=== PATIENT | female | born 1985 | race Caucasian/White ===

== ENCOUNTER 2016-12-28 10:04 | Inpatient (IN) | payer MEDICAID ==
[2016-12-24 11:09] VITALS: BMI 38.2
[2016-12-28] MEDS ORDERED: ceFAZolin 2 GM in SODIUM CHLORIDE 0.9% 100 ML IVPB ONE (10:06)
[2016-12-28] MEDS ORDERED: CITRIC ACID-SODIUM CITRATE 15 ML CUP PO ONE (10:06)
[2016-12-28] MEDS ORDERED: LACTATED RINGERS 1,000 ML IV ONE (10:06)
[2016-12-28 10:45] LABS: Basophils % (A) 0 %; CH 26.4; CHCM 33.3; Eosinophils # (A) 0.1 k/uL (0-0.7); Eosinophils % (A) 1 %; HDW 3.39; HGB 11.4 gm/dL (11.4-16.0); Luc # (Auto) 0.34; Luc % (Auto) 4; Lymphocytes # (A) 1.7 k/uL (1.0-4.8); Lymphocytes % (A) 19 %; MCH 26.7 pg (25.0-35.0); MCHC 33.6 g/dL (31.0-37.0); MCV 79.4 fL (80.0-100.0); Mean Platelet Volume 8.6; Monocytes # (A) 0.5 k/uL (0-1.0); Monocytes % (A) 5 %; Neutrophils # (A) 6.1 k/uL (1.3-7.7); Neutrophils % (A) 71 %; RBC 4.28 m/uL (3.80-5.40); RDW 14.2 % (11.5-15.5); WBC 8.7 k/uL (3.8-10.6); WBC (Perox) 8.59
[2016-12-28] MEDS: LACTATED RINGERS 1,000 ML IV SCH ×3 (11:49→20:23)
[2016-12-28] MEDS ORDERED: PROPOFOL 10 MG/ML 20 ML VIAL IV ONE (12:20)
[2016-12-28] MEDS ORDERED: ONDANSETRON 4 MG/2 ML VIAL ONE (12:20)
[2016-12-28] MEDS ORDERED: HYDROmorphone (PF) 1 MG/ML ONE (12:20)
[2016-12-28] MEDS ORDERED: OXYTOCIN 10 UNIT/ML 1 ML VIAL ONE (12:20)
[2016-12-28] MEDS ORDERED: KETOROLAC 30 MG/ML 1 ML VIAL ONE (12:20)
[2016-12-28] MEDS ORDERED: NALBUPHINE 10 MG/ML AMPUL ONE (12:20)
[2016-12-28] MEDS ORDERED: diphenhydrAMINE 50 MG/ML 1 ML VIAL IVP PRN ×3 (12:59→13:25)
[2016-12-28] MEDS ORDERED: ONDANSETRON 4 MG/2 ML VIAL IVP PRN ×2 (12:59→13:25)
[2016-12-28] MEDS ORDERED: MORPHINE SULFATE 4 MG/ML SYRINGE IVP PRN (12:59)
[2016-12-28] MEDS ORDERED: NALOXONE 0.4 MG/ML 1 ML VIAL IV PRN ×2 (12:59→13:25)
[2016-12-28] MEDS ORDERED: ACETAMINOPHEN TAB 325 MG TAB PO PRN (13:25)
[2016-12-28] MEDS ORDERED: SIMETHICONE 80 MG CHEWABLE PO PRN (13:25)
[2016-12-28] MEDS ORDERED: METOCLOPRAMIDE 5 MG/ML 2 ML VIAL IVP PRN (13:25)
[2016-12-28] MEDS ORDERED: diphenhydrAMINE 25 MG CAP PO PRN (13:25)
[2016-12-28] MEDS ORDERED: diphenhydrAMINE 50 MG CAP PO PRN (13:25)
[2016-12-28] MEDS ORDERED: LANOLIN CREAM 5 GM TUBE TOPICAL PRN (13:25)
[2016-12-28] MEDS ORDERED: ZOLPIDEM 5 MG TAB PO PRN (13:25)
[2016-12-28] MEDS ORDERED: Acetaminophen-Codeine 300-30mg TAB PO PRN (13:25)
[2016-12-28] MEDS ORDERED: OXYTOCIN 20 UNITS/1000 ML NS 1,000 ML IV SCH (13:30)
--- NOTE | 2016-12-28 13:32 | P.HPOB ---
History of Present Illness H&P Date: 12/28/16 Chief Complaint: 39+ weeks, previous section, declining vaginal trial of labor The patient is a 31-year-old 2 para 1001 admitted at 39-5/7 weeks as established by last menstrual period and confirmed by 19 week ultrasound. She is admitted for repeat low transverse section having undergone a previous section for breech presentation. Her has been uncomplicated though she was diagnosed with gestational diabetes which was well controlled with diet alone. She carried a history of induced hypertension but suffered no such concerns during this . Group B strep status is positive Obstetrical history: 2 para 1001 with 1 term delivery for breech presentation. Current statistics are listed in history of present illness. EDC of 12/30/2016 was established by last menstrual period and confirmed by 19 week ultrasound. Laboratory workup demonstrates a blood type of O+ with a negative antibody screen. Rubella status is nonimmune. Remainder of her laboratory workup was within normal limits early Glucola was elevated and followed by an abnormal three-hour glucose tolerance test. Group B strep status is positive. Gynecologic history: Unremarkable with no history of any infections to include STDs. Review of Systems Review of systems is confined to history of present illness. Past Medical History Past Medical History: GERD/Reflux Additional Past Medical History / Comment(s): Gestational Diabetes Onset 2015 History of Any Multi-Drug Resistant Organisms: None Reported Past Surgical History: Section Additional Past Surgical History / Comment(s): wisdom teeth Past Anesthesia/Blood Transfusion Reactions: Postoperative Nausea & Vomiting ( PONV) Past Psychological History: Anxiety Additional Psychological History / Comment(s): in the past Smoking Status: Former smoker Past Alcohol Use History: None Reported Additional Past Alcohol Use History / Comment(s): smoked [id number] <1/2ppd Past Drug Use History: None Reported - Past Family History Mother Additional Family Medical History / Comment(s): Gestational Diabetes Medications and Allergies Home Medications Medication Instructions Recorded Confirmed Type Dlq-Jzyx-Olcyv Acid 1 each PO DAILY 07/31/14 12/24/16 History [-U Capsule] Ranitidine HCl [Zantac] 150 mg PO BID 07/31/14 12/24/16 History Calcium Carbonate [Tums] 500 mg PO DAILY PRN 12/24/16 12/24/16 History Allergies Allergy/AdvReac Type Severity Reaction Status Date / Time adhesive Allergy Rash/Hives Verified 12/24/16 10:56 Exam - Vital Signs Vital signs: Vital Signs Temp Pulse Resp BP Pulse Ox 12/28/16 10:36 98.2 F 82 16 133/78 99 Intake and Output 12/27/16 12/28/16 12/28/16 22:59 06:59 14:59 Other: Weight 104.326 kg Patient Weight 12/29/16 06:59 Weight 104.326 kg In general, this is a well-developed, well-nourished white female in no acute distress. Her heart has a regular rhythm and rate without murmur. Her lungs are clear to auscultation bilaterally in all fermin. Her abdomen is gravid, nondistended, has normal active bowel sounds, is soft, nontender, and without any palpable masses aside from uterine fundus. Her extremities are without any cyanosis, clubbing, or edema and are nontender to palpation bilaterally. Cervical examination is deferred. Results Result Diagrams: 12/28/16 10:20 Abnormal Lab Results - Last 24 Hours (Table) 12/28/16 Range/Units 10:20 MCV 79.4 L (80.0-100.0) fL Assessment and Plan (1) Previous section Status: Acute (2) Term Status: Acute Plan: The patient is admitted for repeat low transverse section. The risks and, occasions of the procedure been thoroughly discussed and she has understood and agreed to proceed.
--- NOTE | 2016-12-28 13:38 | P.OP ---
Date of Procedure: 12/28/16 Preoperative Diagnosis: #1. 39-5/7 weeks, previous section #2. Gestational diabetes Postoperative Diagnosis: Same Procedure(s) Performed: #1. Repeat low transverse section Anesthesia: spinal Surgeon: Garrett Contreras Leadership Program Intern #1: Abbi Osuna Estimated Blood Loss (ml): 500 IV fluids (ml): 1,000 Urine output (ml): 300 Pathology: other (Placenta) Condition: stable Disposition: floor Operative Findings: Intraoperatively, the patient was noted to have a fairly significant and dense degree of scar tissue in the midline between the rectus muscles and below the fascia. The uterus itself had fairly minimal scarring. She was delivered of a viable 7 lbs. 12 oz. baby girl with Apgars of 9 at 1 minute and 9 at 5 minutes. There was a loose nuchal cord reduced following delivery of the head. The placenta was delivered manually, intact, and grossly normal with a grossly normal three-vessel cord. The uterus, tubes, and ovaries were normal to inspection as well. Description of Procedure: The patient was prepped and draped in usual fashion after spinal anesthesia was administered by the anesthesiologist. A Pfannenstiel incision was made through pre-existing scar and extended to the fascia without difficulty. The fascia was divided transversely and noted to be densely adherent to the underlying muscles. This was dissected sharply after which time the abdomen was entered very superiorly as was dense midline scarring. Once entered the scarring in the midline was taken down layer by layer towards the pubic symphysis. The bladder remained well out of the way. A bladder blade was placed in the bladder was noted to be reflected distally from the intended site of incision. As result, a 2 cm incision was made in the transverse plane of the lower uterine segment to enter the uterus at which time clear fluid was noted. The incision was extended in both directions using the bandage scissors. The head was floating and not engaged in the pelvis. It was, however, delivered up and through the incision with fundal pressure. A nuchal cord was noted and was reduced. The nose and mouth were thoroughly suctioned. The remainder of the was delivered onto the field where the cord was doubly clamped, cut, and the passed for resuscitative measures with weight and Apgars noted above. A segment of cord was doubly clamped, cut, and set aside should cord gases become necessary. The placenta was delivered manually and intact as noted above. The uterus was exteriorized and the interior cavity of the uterus swept of any remaining placental or membranous fragments. The margins of the incision were grasped with Myers clamps and the incision closed in 2 layers. The first layer was a running locking stitch of 0 chromic catgut from margin to margin followed by a running imbricating layer of 0 chromic catgut from margin to margin. The posterior cul-de-sac was suctioned using a guard and the uterine and ovarian findings were normal as noted above. The uterus was replaced within the abdominal cavity and the gutters swept of any remaining blood, fluid, or clot. Any small points of bleeding along the incision were made hemostatic with the Bovie. Once hemostasis was confirmed, the parietal peritoneum was loosely reapproximated and layer of muscles examined and found to be hemostatic. The fascia was closed with 2 running stitches of 0 Vicryl proceeding from the lateral margins to the midpoint. The subcutaneous tissues were irrigated, made hemostatic with the Bovie, and reapproximated with running stitch of 30 plain catgut. The skin was reapproximated with a running subcuticular stitch of 4-0 Vicryl from margin to margin followed by half-inch Steri-Strips placed with Mastisol. Estimated blood loss for the case was approximate 500 mL. There were no complications. All sponge, instrument, and needle counts were correct. The patient tolerated the procedure well and proceeded to the recovery room in stable condition. Both mother and are resting comfortably in recovery.
[2016-12-28] MEDS ORDERED: MEASLES-MUMPS-RUBELLA VACC/PF 12,500 UNIT/0.5 ML VIAL SQ ONE (13:39)
[2016-12-28] MEDS: KETOROLAC 30 MG/ML 1 ML VIAL IVP PRN (19:08)
[2016-12-28] MEDS: SENNOSIDES-DOCUSATE SODIUM 1 EACH TAB PO SCH (20:23)
[2016-12-29] MEDS: LACTATED RINGERS 1,000 ML IV SCH ×7 (01:06→23:14)
[2016-12-29] MEDS: KETOROLAC 30 MG/ML 1 ML VIAL IVP PRN (01:28)
[2016-12-29] MEDS: Acetaminophen-Codeine 300-30mg TAB PO PRN ×2 (08:03→17:52)
[2016-12-29] MEDS: SENNOSIDES-DOCUSATE SODIUM 1 EACH TAB PO SCH ×2 (08:03→20:04)
--- NOTE | 2016-12-29 08:25 | P.PNOBGPC ---
Subjective - Subjective Patient reports: Reports appetite normal, Reports voiding normally, Reports pain well controlled, Reports ambulating normally : doing well Objective - Vital Signs Latest vital signs: Vital Signs Temp Pulse Resp BP Pulse Ox 12/29/16 04:00 98.1 F 67 18 124/56 12/29/16 00:00 98.1 F 70 16 126/72 12/28/16 20:00 98.1 F 65 16 125/74 12/28/16 17:59 98 12/28/16 15:59 98.5 F 86 16 104/72 97 12/28/16 15:15 78 16 121/56 98 12/28/16 14:59 81 16 135/63 98 12/28/16 14:29 83 16 129/64 97 12/28/16 13:59 74 16 143/81 98 12/28/16 13:44 76 16 114/76 98 12/28/16 13:29 97.6 F 81 16 120/61 98 12/28/16 12:59 81 16 120/61 98 12/28/16 10:36 98.2 F 82 16 133/78 99 Intake and Output 12/28/16 12/29/16 12/29/16 22:59 06:59 14:59 Intake Total 300 Output Total 450 850 Balance -150 -850 Intake: IV 300 Oxytocin 20 Units/1000 ml 300 Ns 1,000 ml @ Per Protocol IV .Q0M [facility] Rx#: [id number] Output: Urine 450 850 - Exam Lungs: bilateral: normal Chest: Normal S1, Normal S2 Extremities: Present: normal Abdomen: Present: normal appearance, soft. Absent: distention, tenderness Incision: Present: normal, dry, intact Uterus: Present: normal, firm (And fundus as tonic and nontender just below the umbilicus.) - Labs Labs: Abnormal Lab Results - Last 24 Hours (Table) 12/28/16 Range/Units 10:20 MCV 79.4 L (80.0-100.0) fL Assessment and Plan (1) Previous section Current Visit: Yes Status: Acute Code(s): Z98.891 - HISTORY OF UTERINE SCAR FROM PREVIOUS SURGERY SNOMED Code(s): 156166860 (2) Term Current Visit: Yes Status: Acute Code(s): Z34.80 - ENCOUNTER FOR SUPRVSN OF NORMAL , UNSP TRIMESTER SNOMED Code(s): 09386002 (3) S/P section Narrative/Plan: Continue routine postoperative care. Have encouraged her to ambulate in the hallways at least 4 times daily. Anticipate possible discharge home tomorrow. Current Visit: Yes Status: Acute Code(s): Z98.89 - OTHER SPECIFIED POSTPROCEDURAL STATES * DO NOT USE * SNOMED Code(s): 151917793
[2016-12-29 08:55] LABS: Basophils % (A) 0 %; CH 26.4; CHCM 32.7; Eosinophils # (A) 0.1 k/uL (0-0.7); Eosinophils % (A) 1 %; HCT 30.3 % (34.0-46.0); HDW 3.21; Hypochromasia Slight; Luc # (Auto) 0.28; Luc % (Auto) 4; Lymphocytes # (A) 1.2 k/uL (1.0-4.8); Lymphocytes % (A) 15 %; MCH 26.5 pg (25.0-35.0); MCHC 32.6 g/dL (31.0-37.0); MCV 81.1 fL (80.0-100.0); Mean Platelet Volume 8.2; Monocytes # (A) 0.5 k/uL (0-1.0); Monocytes % (A) 6 %; Neutrophils # (A) 5.8 k/uL (1.3-7.7); Neutrophils % (A) 74 %; RBC 3.73 m/uL (3.80-5.40); RDW 14.5 % (11.5-15.5); WBC 7.8 k/uL (3.8-10.6); WBC (Perox) 8.41
[2016-12-29 09:06] LABS: HGB 9.9 gm/dL (11.4-16.0)
--- NOTE | 2016-12-29 12:09 | P.PN ---
Progress Note - Text 0734 Anesthesia POD 1. Patient is status post section under spinal anesthesia with intra-thecal preservative free morphine 300 g. Mild pruritus, good post-op analgesia, and no headache or other complication.
[2016-12-29] MEDS: IBUPROFEN 600 MG TAB PO PRN ×2 (16:00→22:31)
[2016-12-30] MEDS: Acetaminophen-Codeine 300-30mg TAB PO PRN ×2 (05:24→10:21)
[2016-12-30] MEDS: LACTATED RINGERS 1,000 ML IV SCH (07:02)
[2016-12-30] MEDS: IBUPROFEN 600 MG TAB PO PRN (08:32)
[2016-12-30] MEDS: SENNOSIDES-DOCUSATE SODIUM 1 EACH TAB PO SCH (08:32)
--- NOTE | 2016-12-30 08:57 | P.DS ---
Providers Date of admission: 12/28/16 10:04 Expected date of discharge: 12/30/16 Attending physician: Garrett Contreras Primary care physician: Stated None - Discharge Diagnosis(es) (1) Previous section Current Visit: Yes Status: Acute (2) Term Current Visit: Yes Status: Acute (3) S/P section Current Visit: Yes Status: Acute Hospital Course: Patient is a 31-year-old 2 para 1001 admitted at 39-5/7 weeks by good dating parameters admitted for repeat low transverse section with an uncomplicated though she does carry the diagnosis of gestational diabetes which was well controlled with diet. She was taken to the operating room where she was delivered of a viable 7 lbs. 12 oz. baby girl with Apgars of 9 at 1 minute and 9 at 5 minutes. Her postoperative course was unremarkable with vital signs remaining stable and her temperature was afebrile throughout. She was deemed stable for discharge by post operative day #2 and was discharged home to follow-up in the office in 2 weeks for an incision check and 6 weeks routinely. Discharge instructions included calling for any significantly increased bleeding or foul-smelling lochia, significantly increased fever or abdominal pain, perineal complaints, breast complaints, incisional complaints, or anything else that concerned her. She was additionally instructed to have nothing in the vagina for at least 6 weeks time to include intercourse and to abstain from any heavy lifting over the same period of time. She was last instructed to do no driving until off of all pain medications or 2 weeks' time, whichever came first. She was provided with a prescription for Tylenol No. 3, 1 -2 by mouth every 6 hours when necessary pain, #30 dispensed with no refills. She was otherwise to use tajn-jhw-xnijpsx analgesic pain medications as needed and was requested to continue a vitamin daily as she has opted to breast-feed. Maternal blood type is O+ and rubella status is nonimmune. She therefore was to receive MMR prior to discharge. Discharge hemoglobin and hematocrit were 9.9 and 30.3 respectively. As result, she was to take iron sulfate daily for roughly 1 month. Procedures: 1. Repeat low transverse section Patient Condition at Discharge: Good Plan - Discharge Summary New Discharge Prescriptions: Acetaminophen-Codeine 300-30mg [Tylenol #3] 2 tab PO Q6H PRN #30 tablet PRN Reason: Pain Discharge Medication List Bdv-Xcsr-Majyt Acid [-U Capsule] 1 each PO DAILY 07/31/14 [ History] Ranitidine HCl [Zantac] 150 mg PO BID 07/31/14 [History] Calcium Carbonate [Tums] 500 mg PO DAILY PRN 12/24/16 [History] Acetaminophen-Codeine 300-30mg [Tylenol #3] 2 tab PO Q6H PRN #30 tablet [Rx] Follow up Appointment(s)/Referral(s): Garrett Contreras MD [STAFF PHYSICIAN] - 2 Weeks Discharge Disposition: HOME SELF-CARE
[2016-12-30 10:31] VITALS: BP 121/78; PULSE 84; RESP 18; TEMP 98.4
== END 2016-12-30 11:11 | disposition home or self-care (01) | DRG 766 ==
LOC: 4FBP 10:04
PROVIDERS: ADMIT Obstetrics & Gynecology; ATTEND Obstetrics & Gynecology
PROC: 10D00Z1 Extraction of Products of Conception, Low, Open Approach (ICD-10-PCS; principal; 2016-12-28 12:00)
DX: O34.211 Maternal care for low transverse scar from previous cesarean delivery (principal); O24.420 Gestational diabetes mellitus in childbirth, diet controlled; K21.9 Gastro-esophageal reflux disease without esophagitis; Z37.0 Single live birth; O99.824 Streptococcus B carrier state complicating childbirth; Z87.891 Personal history of nicotine dependence; O99.62 Diseases of the digestive system complicating childbirth; O69.81X0 Labor and delivery complicated by cord around neck, without compression, not applicable or unspecified; Z3A.39 39 weeks gestation of pregnancy
CPT/HCPCS: 85025; 86850; 86900; 86901; 88307; 90707

== ENCOUNTER 2019-02-05 13:37 | Day surgery (SDC) | payer MEDICAID ==
--- NOTE | 2019-02-04 13:24 | HP ---
HISTORY AND PHYSICAL REASON FOR ADMISSION: Surgery is scheduled for 02/05/2019. HISTORY OF PRESENT ILLNESS: Luanne Vu is a 33-year-old patient seen with a displaced left ankle lateral malleolar fracture. I recommended open reduction and internal fixation. I reviewed the risks, complications, and recovery. The patient was agreeable, consent was obtained. PAST MEDICAL HISTORY: Noncontributory. PAST SURGICAL HISTORY: section. MEDICATIONS: Zantac. ALLERGIES: None. SOCIAL HISTORY: She smokes half a pack cigarettes daily. PHYSICAL EXAMINATION: Physical evaluation of the left ankle reveals tenderness along the lateral malleolus with moderate swelling and mild ecchymosis. No open wounds. Limited range of motion. Ankle with some pain. Distal neurovascular exam intact. RADIOGRAPHS: Of the left ankle revealed a displaced lateral malleolar fracture. IMPRESSION: Left ankle lateral malleolar fracture. PLAN: Open reduction and internal fixation, left ankle lateral malleolus fracture. Surgery is 02/05/2019. MMODL / IJN: [id number] /
[~2019-02-05 13:37] MED LIST: DEXAMETHASONE SOD PHOSPHATE 10 MG/ML 1 ML VIAL IV ONE; HYDROmorphone 0.5 MG/0.5 ML SYRINGE IVP PRN; MIDAZOLAM 2 MG/2 ML VIAL IV PRN; SCOPOLAMINE 1.5MG/72HR PATCH TRANSDERM ONE; ceFAZolin IN SWFI 2 GM/20 ML SYRINGE IVP ONE
[2019-02-05] MEDS ORDERED: LIDOCAINE 1% 20 ML VIAL (10MG/ML) FOR IV START INTRADERMA ONE (14:09)
[2019-02-05] MEDS: LACTATED RINGERS 1,000 ML IV SCH (14:10)
[2019-02-05] MEDS: ONDANSETRON 4 MG/2 ML VIAL IVP ONE ×2 (14:13→17:36)
[2019-02-05] MEDS ORDERED: fentaNYL (PF) 50 MCG/ML 2 ML AMP IVP ONE (14:50)
--- NOTE | 2019-02-05 15:58 | P.ANPRN ---
Procedure Note - Anesthesia - Nerve Block Performed Left Popliteal Single Time Out Performed: Yes Date of Procedure: 02/05/19 Procedure Start Time: 14:43 Location of Patient Procedure: PreOp Indication: Acute Post-Operative Pain Specifically requested for management of pain by DrTamy: Matias Salgado Sedation Type: Sedate with meaningful contact maintained Preparation: Sterile Prep Position: Right Lateral Catheter: None Needle Types: Pajunk Needle Gauge: 21 (2") Technique: Ultrasound Injectate: Other (see comment) (ropivacaine 0.25%/lidocaine 0.5% 20 mL) Adjunct: Epinephrine (see comment for dilution ratio) (1:200,000) Blood Aspirated: No Pain Paresthesia on Injection Noted: No Resistance on Injection: Normal Events: Uneventful and Well Tolerated
--- NOTE | 2019-02-05 16:00 | P.ANPRN ---
Procedure Note - Anesthesia - Nerve Block Performed Left Saphenous/Obturator Single Time Out Performed: Yes Date of Procedure: 02/05/19 Procedure Start Time: 15:05 Location of Patient Procedure: PreOp Indication: Acute Post-Operative Pain Specifically requested for management of pain by DrTamy: Matias Salgado Sedation Type: Sedate with meaningful contact maintained Preparation: Sterile Prep Position: Supine Catheter: None Needle Types: Pajunk (4") Needle Gauge: 20 Technique: Ultrasound Injectate: Other (see comment) (Ropivacaine 0.25%/lidocaine 0.5% 20 mL) Adjunct: Epinephrine (see comment for dilution ratio) (1:200,000) Blood Aspirated: No Pain Paresthesia on Injection Noted: No Resistance on Injection: Normal Events: Uneventful and Well Tolerated
[2019-02-05] MEDS ORDERED: MIDAZOLAM 2 MG/2 ML VIAL ONE (16:08)
[2019-02-05] MEDS ORDERED: LIDOCAINE 2%-EPI 1:100,000 20 ML VIAL ONE (16:08)
[2019-02-05] MEDS ORDERED: fentaNYL (PF) 50 MCG/ML 2 ML AMP ONE (16:08)
[2019-02-05] MEDS ORDERED: PROPOFOL 10 MG/ML 20 ML VIAL IV ONE (16:08)
[2019-02-05] MEDS ORDERED: ROPIVACAINE 5 MG/ML 30 ML VIAL ONE (16:08)
[2019-02-05] MEDS ORDERED: ceFAZolin 1,000 MG in SODIUM CHLORIDE 0.9% 1,000 ML IRRIGATION ONE (16:36)
[2019-02-05] MEDS ORDERED: NALOXONE 0.4 MG/ML 1 ML VIAL IV PRN (17:16)
[2019-02-05] MEDS ORDERED: ACETAMINOPHEN TAB 325 MG TAB PO PRN (17:16)
[2019-02-05] MEDS ORDERED: HYDROmorphone 0.5 MG/0.5 ML SYRINGE IVP PRN (17:16)
[2019-02-05] MEDS ORDERED: HYDROcodone/APAP 7.5-325MG 1 EACH TAB PO PRN (17:16)
[2019-02-05] MEDS ORDERED: ONDANSETRON 4 MG/2 ML VIAL IVP PRN (17:16)
[2019-02-05] MEDS ORDERED: traMADol 50 MG TAB PO PRN (17:16)
--- NOTE | 2019-02-05 17:24 | P.OP ---
Date of Procedure: 02/05/19 Preoperative Diagnosis: Displaced left ankle lateral malleolus fracture Postoperative Diagnosis: Displaced left ankle lateral malleolus fracture Procedure(s) Performed: Open reduction and internal fixation left ankle lateral malleolus fracture Implants: Synthes one third semitubular 6-hole plate with appropriate length screws Anesthesia: regional (Popliteal block), spinal Surgeon: Matias Salgado Director Marketing Analytics #1: Mor Gipson Estimated Blood Loss (ml): 10 Pathology: none sent Condition: stable Disposition: PACU Indications for Procedure: 33-year-old patient seen with a displaced left ankle lateral malleolus fracture. After treatment options were discussed, she elected to proceed with recommended open reduction internal fixation. Operative Findings: see description of procedure Description of Procedure: The patient was taken to the operative suite. The patient received preoperative IV antibiotics. A well-padded tourniquet placed proximal left thigh. The left lower extremity was prepped and draped in the normal sterile orthopedic fashion. The extremity was elevated and tourniquet insufflated to 300. An incision was now made over the lateral meniscus sharply through skin. Dissection was taken down to the fracture site. Periosteal elevation was utilized to better define the fracture site. The fracture appeared displaced. The fracture was now red uced and held in position with a bone reduction clamp. I chose a one third semitubular 6-hole plate. I probed the contoured. It was secured to the bone. Appropriate drill holes were made appropriately screws were inserted noting good purchase of all 6 screws. The bone reduction clamp was removed. We had anatomic reduction of the fracture. C-arm was brought in confirming anatomic reduction of the fracture as well as adequate positioning of the internal fixation. Spot films were obtained intraoperatively to document this. The C- arm was pulled back. The wound was irrigated. The subcu soft tissues were approximated with 2-0 Vicryl. The skin was repaired with skin wil. Sterile dressings were applied. The tourniquet was released with immediate capillary refill the entire foot and toes noted. The patient is now placed into a modified bulky Murray both ankle in neutral position. The patient was now awakened transferred to a bed and recovery stable condition. Manuel CASILLAS assisted with the procedure.
[2019-02-05 19:14] VITALS: BMI 37.9
[2019-02-05] MEDS: ceFAZolin IN SWFI 2 GM/20 ML SYRINGE IVP SCH (23:25)
[2019-02-05] MEDS: HYDROcodone/APAP 7.5-325MG 1 EACH TAB PO PRN (23:36)
[2019-02-05 23:43] VITALS: TEMP 97.7
[2019-02-06] MEDS: HYDROcodone/APAP 7.5-325MG 1 EACH TAB PO PRN ×2 (05:36→11:17)
[2019-02-06] MEDS: LACTATED RINGERS 1,000 ML IV SCH (06:41)
[2019-02-06 07:26] VITALS: BP 122/86; PULSE 62; RESP 16
--- NOTE | 2019-02-06 08:44 | XR ---
EXAMINATION TYPE: XR ankle limited LT DATE OF EXAM: 02/05/2019 COMPARISON: NONE HISTORY: Postop TECHNIQUE: 2 views submitted FINDINGS: Postsurgical change in near anatomic alignment. IMPRESSION: Postop
[2019-02-06] MEDS: ceFAZolin IN SWFI 2 GM/20 ML SYRINGE IVP SCH (08:55)
--- NOTE | 2019-02-06 08:56 | FL ---
EXAMINATION TYPE: FL guidance operating room DATE OF EXAM: 02/05/2019 HISTORY: Flouroscopy time 9 seconds of fluoroscopy provided. IMPRESSION: 1. Fluoroscopy time.
[2019-02-06] MEDS ORDERED: ASPIRIN 325 MG TAB PO SCH (09:00)
--- NOTE | 2019-02-06 10:59 | P.PN ---
Subjective Progress Note Date: 02/06/19 Principal diagnosis: Status post ORIF left ankle lateral malleolus Patient evaluated at bedside today, she is resting comfortably. Her pain is well-controlled. She's been up with therapy, she's doing well. Denies any fevers or chills. Objective - Vital Signs Vital signs: Vital Signs Temp 97.7 F 02/06/19 07:00 Pulse 62 02/06/19 07:00 Resp 16 02/06/19 07:00 BP 122/86 02/06/19 07:00 Pulse Ox 97 02/06/19 07:00 Intake & Output 02/05/19 02/06/19 02/06/19 18:59 06:59 18:59 Intake Total 1201 500 Output Total 10 Balance 1191 500 Intake: IV 1201 Intake, IV Titration 500 Amount Lactated Ringers 1,000 ml 500 @ 40 mls/hr IV .Q24H [facility] Rx#:[id number] Output: Estimated Blood Loss 10 Other: Voiding Method Bedside Commode # Voids 3 - Exam Left lower extremity: Postop splint is in good position and condition, she is able to wiggle the toes, her sensory exam both proximal distal splitter intact. Skin is warm to touch. Assessment and Plan Plan: Assessment: Postoperative day 1 status post ORIF left ankle lateral malleolus fracture Plan: Pain control, we'll discharge home on oral medication GI and DVT prophylaxis, 81 mg aspirin twice a day Splint instructions were discussed Activity instructions discussed Patient will be discharged home today Time with Patient: Less than 30
--- NOTE | 2019-02-06 11:02 | P.DS ---
Providers Date of admission: 02/05/2019 Expected date of discharge: 02/06/19 Attending physician: Matias Salgado Primary care physician: Stated None Hospital Course: Date of admission: 02/05/2019 Date of discharge: 02/06/2019 Admission diagnosis: Status post ORIF left ankle lateral malleolus fracture Discharge diagnosis: Sustained Attending physician: Dr. Salgado Surgical procedures: ORIF left ankle lateral malleolus fracture Brief history: Patient is a 33-year-old female was evaluated in the outpatient setting for a left ankle injury. She determined she had a displaced left lateral malleolus fracture. She determined she would need surgical intervention, she was scheduled for surgery on 02/05/[address] Salgado [place] [facility] course: Details of patient's surgery can be found in operative report. Patient tolerated the procedure well and was subsequently transported to orthopedic floor. Patient's orthopeidc and medical care was provided daily. Patient had daily laboratory tests performed for evaluation of overall blood counts. Patient had daily physical therapy to include strengthening range of motion as well as education with walker ambulation. Patient was treated with aspirin for their postoperative DVT prophylaxis during their inpatient stay. Patient was noted to have a relatively uneventful postoperative course. Patient reported satisfactory pain control with oral pain medications by postoperative day 0. Patient showed satisfactory progress with physical therapy. Patient moved steadily through the program and had no difficulty meeting the goals by postoperative day 1. Given patient's otherwise satisfactory course and having met physical therapy goals, plan is to discharge patient home on postoperative day 1. Discharge condition/disposition: Patient will be discharged home in stable con dition. Discharge medications: Instructions are given on resumption of patient's normal daily medications per primary care recommendation, in addition patient will be prescribed [place] 10 mg/325 mg, tramadol 50 mg, aspirin 81 mg. Discharge instructions: 1. Nonweightbearing left lower extremity 2. Keep splint clean and dry, keep covered while showering 3. Ice and elevate the lower extremity options 4. Follow up in office at 2 weeks postop with Manuel Gipson PA-C 5. Follow up with your primary care doctor 7-10 days after discharge. 6. Contact [facility] with any questions, . Procedures: ORIF left ankle lateral malleolus fracture Patient Condition at Discharge: Good Plan - Discharge Summary Discharge Rx Participant: Yes New Discharge Prescriptions: New Aspirin [Adult Low Dose Aspirin EC] 81 mg PO BID #60 tablet. Hydrocodone/Acetaminophen [[place] 10-325] 1 - 2 each PO Q6H PRN #40 tab PRN Reason: Pain traMADol HCl [Ultram] 50 mg PO Q6H PRN #28 tab PRN Reason: Pain No Action Ranitidine HCl [Zantac] 150 mg PO BID PRN PRN Reason: Heartburn Hydrocodone/Acetaminophen [[place] 7.5-325] 1 tab PO Q6HR PRN PRN Reason: Pain Discharge Medication List Ranitidine HCl [Zantac] 150 mg PO BID PRN 07/31/14 [History] Hydrocodone/Acetaminophen [[place] 7.5-325] 1 tab PO Q6HR PRN 02/02/19 [History] Aspirin [Adult Low Dose Aspirin EC] 81 mg PO BID #60 tablet. 02/06/19 [Rx] Hydrocodone/Acetaminophen [[place] 10-325] 1 - 2 each PO Q6H PRN #40 tab 02/06/19 [Rx] traMADol HCl [Ultram] 50 mg PO Q6H PRN #28 tab 02/06/19 [Rx] Follow up Appointment(s)/Referral(s): Mor Gipson PAC [PHYSICIAN SPORTS MARKETER] - 02/21/19 10:20 am Patient Instructions/Handouts: ORIF of an Ankle Fracture (DC) Activity/Diet/Wound Care/Special Instructions: Orthopedic discharge instructions: 1. Nonweightbearing left lower extremity 2. Keep splint clean and dry, keep covered while showering 3. Ice and elevate often 4. Aspirin 325 mg daily for DVT prophylaxis 5. [facility]-up at [facility] in [facility] weeks, contact office with any questions Discharge Disposition: HOME SELF-CARE
== END 2019-02-06 12:21 | disposition home or self-care (01) ==
LOC: OR 13:37 → 4SSUR 18:11 → OR 02-06 12:21
PROVIDERS: ATTEND Orthopaedic Surgery
DX: S82.62XA Displaced fracture of lateral malleolus of left fibula, initial encounter for closed fracture (principal); X58.XXXA Exposure to other specified factors, initial encounter; Z87.891 Personal history of nicotine dependence; K21.9 Gastro-esophageal reflux disease without esophagitis; Z79.899 Other long term (current) drug therapy; Z91.09 Other allergy status, other than to drugs and biological substances
CPT/HCPCS: 64447; 81025; 64445; 73600; 27792; C1713; J2250; J1100; J2405; J0690 ×3; J3010; J2795; J2704

== ENCOUNTER → 2020-02-14 | Outpatient (CLI) | payer MEDICAID ==
[2020-02-14 10:15] LABS: Appearance,Urine Clear (Clear); Bilirubin,Urine Negative (Negative); Blood,Urine Negative (Negative); Color,Urine Yellow; Glucose,Urine (UA) Negative (Negative); Ketones,Urine Negative (Negative); Leukocyte Esterase,Urine Negative (Negative); Nitrite,Urine Negative (Negative); PH, Urine 6.5 (5.0-8.0); Protein,Urine Negative (Negative); Specific Gravity,Urine 1.018 (1.001-1.035); Urobilinogen,Urine <2.0 mg/dL (<2.0)
[2020-02-14 10:42] LABS: HCT 37.6 % (34.0-46.0); HGB 12.5 gm/dL (11.4-16.0); MCH 30.4 pg (25.0-35.0); MCHC 33.3 g/dL (31.0-37.0); MCV 91.2 fL (80.0-100.0); Mean Platelet Volume 7.4; Platelet Count 280 k/uL (150-450); RBC 4.12 m/uL (3.80-5.40); RDW 12.4 % (11.5-15.5); WBC 8.7 k/uL (3.8-10.6)
[2020-02-14 18:10] LABS: Hepatitis B Surface Antigen Non-Reactive (Non-Reactive)
[2020-02-14 18:31] LABS: HIV 2 AB Non-Reactive (Non-Reactive); HIV AB P24 Non-Reactive (Non-Reactive); HIV P24 AG Non-Reactive (Non-Reactive)
[2020-02-14 19:13] LABS: Hemoglobin A1C 5.4 % (4.0-6.0)
== END | disposition home or self-care (01) ==
LOC: LABWHC1 08:31
PROVIDERS: ATTEND Obstetrics & Gynecology
DX: Z34.81 Encounter for supervision of other normal pregnancy, first trimester (principal)
CPT/HCPCS: 36415; 81003; 82950; 83036; 85027; 86762; 86780; 86850; 86900; 86901; 87086; 87340; 87390

== ENCOUNTER → 2020-02-29 | Outpatient (CLI) | payer MEDICAID ==
[2020-02-29 12:36] LABS: Glucose 3 Hour, Gest 67 mg/dL
== END | disposition home or self-care (01) ==
LOC: LABWHC1 07:39
PROVIDERS: ATTEND Obstetrics & Gynecology
DX: O99.810 Abnormal glucose complicating pregnancy (principal)
CPT/HCPCS: 36415; 82951; 82952

== ENCOUNTER 2020-08-26 10:08 | Inpatient (IN) | payer MEDICAID ==
[2020-08-20 14:44] VITALS: BMI 39.9
[2020-08-26] MEDS ORDERED: CITRIC ACID-SODIUM CITRATE 15 ML CUP PO ONE ×2 (10:20→11:10)
[2020-08-26 10:53] LABS: Basophils % (A) 0 %; Eosinophils # (A) 0.1 k/uL (0-0.7); Eosinophils % (A) 2 %; HCT 31.6 % (34.0-46.0); HGB 10.8 gm/dL (11.4-16.0); Lymphocytes # (A) 1.4 k/uL (1.0-4.8); Lymphocytes % (A) 20 %; MCH 27.4 pg (25.0-35.0); MCHC 34.2 g/dL (31.0-37.0); MCV 80.2 fL (80.0-100.0); Mean Platelet Volume 8.1; Monocytes # (A) 0.3 k/uL (0-1.0); Monocytes % (A) 5 %; Neutrophils # (A) 4.7 k/uL (1.3-7.7); Neutrophils % (A) 70 %; Platelet Count 184 k/uL (150-450); RBC 3.94 m/uL (3.80-5.40); RDW 13.6 % (11.5-15.5); WBC 6.8 k/uL (3.8-10.6)
[2020-08-26] MEDS: LACTATED RINGERS 1,000 ML IV SCH ×2 (11:12→16:37)
[2020-08-26] MEDS ORDERED: WATER FOR INJECTION, STERILE 10 ML VIAL IV ONE (11:58)
[2020-08-26] MEDS ORDERED: OXYTOCIN 10 UNIT/ML 1 ML VIAL ONE (11:58)
[2020-08-26] MEDS ORDERED: ePHEDrine SULFATE/0.9% NACL/PF 50 MG/5 ML SYRINGE IV ONE (11:58)
[2020-08-26] MEDS ORDERED: fentaNYL (PF) 50 MCG/ML 2 ML AMP ONE (11:58)
[2020-08-26] MEDS ORDERED: KETOROLAC 15 MG/ML 1 ML VIAL ONE (11:58)
[2020-08-26] MEDS ORDERED: MORPHINE SULFATE (PF) 0.3 MG/0.3 ML SYR ONE (11:58)
[2020-08-26] MEDS ORDERED: CELLULOSE,OXIDIZED 1 EACH EACH MISCELLANE ONE (12:00)
[2020-08-26] MEDS ORDERED: NALOXONE 0.4 MG/ML 1 ML VIAL IV PRN (13:17)
[2020-08-26] MEDS ORDERED: diphenhydrAMINE 50 MG CAP PO PRN (13:17)
[2020-08-26] MEDS ORDERED: LANOLIN CREAM 5 GM TUBE TOPICAL PRN (13:17)
[2020-08-26] MEDS ORDERED: diphenhydrAMINE 50 MG/ML 1 ML VIAL IVP PRN (13:17)
[2020-08-26] MEDS ORDERED: ACETAMINOPHEN TAB 325 MG TAB PO PRN (13:17)
[2020-08-26] MEDS ORDERED: ZOLPIDEM 5 MG TAB PO PRN (13:17)
[2020-08-26] MEDS ORDERED: SIMETHICONE 80 MG CHEWABLE PO PRN (13:17)
[2020-08-26] MEDS ORDERED: diphenhydrAMINE 25 MG CAP PO PRN (13:17)
[2020-08-26] MEDS ORDERED: ONDANSETRON 4 MG/2 ML VIAL IVP PRN (13:17)
[2020-08-26] MEDS ORDERED: METOCLOPRAMIDE 5 MG/ML 2 ML VIAL IVP PRN (13:17)
--- NOTE | 2020-08-26 13:23 | P.HPOB ---
History of Present Illness H&P Date: 08/26/20 Chief Complaint: And one sevenths weeks, previous section, requesting repeat The patient is a 35-year-old 3 para 2 scissors or 2 admitted at 39 and one sevenths weeks as established by last menstrual period and confirmed by 20 week ultrasound. She is admitted for repeat low transverse section having previously undergone 2 sections and requesting repeat. Her has been complicated only by gestational diabetes which has been fol lowed with excellent blood sugar control using diet alone and reassuring routine testing starting from 32 weeks weekly basis. Group B strep status is negative. She is known to have a 2 cm renal cyst on the right side which was noted 35 weeks. Obstetrical history: 3 para 2 scissors or 2 with 2 term sections without complications. Current statistics are listed in history of present illness. EDC of 09/01/2020 was established by last menstrual period and confirmed by 20 week ultrasound. Laboratory workup demonstrates a blood type of O+ with a negative antibody screen. Rubella status is immune. Remainder of the laboratory workup was within normal limits. Early Glucola was elevated and followed by an abnormal three-hour glucose tolerance test. Group B strep status is negative. Senior Graphic Designer history: Unremarkable with no history of any infections to include STDs. Review of Systems Review of systems is confined to history of present illness. Past Medical History Past Medical History: GERD/Reflux Additional Past Medical History / Comment(s): fell last evening, fx. left ankle, currently in half cast/splint History of Any Multi-Drug Resistant Organisms: None Reported Past Surgical History: Section Additional Past Surgical History / Comment(s): wisdom teeth, C/S x2. ORIF LT ANKLE-01/2019 Past Anesthesia/Blood Transfusion Reactions: Postoperative Nausea & Vomiting (PONV) Past Psychological History: No Psychological Hx Reported Additional Psychological History / Comment(s): in the past Smoking Status: Former smoker Past Alcohol Use History: None Reported, Occasional Additional Past Alcohol Use History / Comment(s): smoked [id number] <1/2ppd, drinks 3-5 days per week Past Drug Use History: None Reported - Past Family History Mother Additional Family Medical History / Comment(s): Gestational Diabetes Medications and Allergies Home Medications Medication Instructions Recorded Confirmed Type Calcium Carbonate [Tums] 1,000 mg PO TID PRN 08/20/20 08/26/20 History Famotidine [Pepcid] 10 mg PO BID 08/20/20 08/26/20 History Ferrous Sulfate [Feosol] 325 mg PO BID 08/20/20 08/26/20 History Pnv No.95/Ferrous Fum/Folic AC 1 each PO DAILY 08/20/20 08/26/20 History [ Multivitamin Tablet] Allergies Allergy/AdvReac Type Severity Reaction Status Date / Time adhesive Allergy Rash/Hives Verified 08/20/20 14:40 Exam Vital Signs Temp Pulse Resp BP 08/26/20 10:37 96.9 F L 76 16 135/91 Intake and Output 08/25/20 08/26/20 08/26/20 22:59 06:59 14:59 Other: Weight 108.862 kg In general, this is a well-developed, well-nourished white female in no acute distress. Her heart has a regular rhythm and rate without murmur. Her lungs are clear to auscultation bilaterally in all fermin. Her abdomen is gravid, nondistended, has normal active bowel sounds, soft, nontender, and without any palpable masses aside from uterine fundus. Her extremities are without any cyanosis, clubbing, or edema and are nontender to palpation bilaterally. Digital cervical examination is deferred. Results Result Diagrams: 08/26/20 10:45 Abnormal Lab Results - Last 24 Hours (Table) 08/26/20 Range/Units 10:45 Hgb 10.8 L (11.4-16.0) gm/dL Hct 31.6 L (34.0-46.0) % Assessment and Plan (1) Gestational diabetes Current Visit: No Status: Acute Code(s): O24.419 - GESTATIONAL DIABETES MELLITUS IN , UNSP CONTROL SNOMED Code(s): 71289313 (2) Previous section Current Visit: No Status: Acute Code(s): Z98.891 - HISTORY OF UTERINE SCAR FROM PREVIOUS SURGERY SNOMED Code(s): 132812688 (3) Term Current Visit: No Status: Acute Code(s): Z34.80 - ENCOUNTER FOR SUPRVSN OF NORMAL , UNSP TRIMESTER SNOMED Code(s): 23379409 Plan: The patient is admitted for repeat low transverse section. The risks and complications the procedure been thoroughly discussed. She has understood and agreed to proceed.
[2020-08-26] MEDS ORDERED: LACTATED RINGERS 1,000 ML IV SCH (13:30)
[2020-08-26] MEDS ORDERED: OXYTOCIN 30 UNITS/500 ML NS 30 UNIT in SALINE 1 500ML.BAG IV SCH (13:30)
--- NOTE | 2020-08-26 13:30 | P.OP ---
Date of Procedure: 08/26/20 Preoperative Diagnosis: #1. 39 and one sevenths weeks, previous section 2, requesting repeat #2. Gestational diabetes Postoperative Diagnosis: Same Procedure(s) Performed: #1. Repeat low-transverse section Anesthesia: spinal Surgeon: Garrett Contreras Box Stamper #1: Abbi Osuna Estimated Blood Loss (ml): 800 IV fluids (ml): 1,500 Urine output (ml): 100 Pathology: none sent Condition: stable Disposition: PACU Operative Findings: The patient was taken the operating room where she was delivered of a viable 8 lbs. 1 oz. baby girl with Apgars of 9 at 1 minute and 9 at 5 minutes. There was a moderate to significant amount of scarring at the level of the fascia and rectus muscles as well as at the level of the bladder flap and peritoneum to the anterior abdominal wall. Following the procedure, layer of Interceed was placed across the entire area of previous scarring to attempt to decrease it in the future. Otherwise, uterus, tubes, and ovaries were entirely normal to inspe ction and palpation. Description of Procedure: Patient was prepped and draped in usual fashion after spinal anesthesia was administered by the anesthesiologist. A Pfannenstiel incision was made through pre-existing scar and extended into the abdominal cavity with some difficulty at the level of the fascia and muscles as they were significantly scarred. Once in the abdomen, the bladder peritoneum was noted to be scarred to the back of the rectus muscles and fairly high in the pelvis as a general rule. It was therefore elevated, incised, and reflected distally after taking down some of the adhesions which were making the procedure more difficult. A 2 cm incision was made in the transverse plane of the lower uterine segment to enter the uterus at which time clear fluid was noted. The incision was extended in both directions using the bandage scissors. The head was delivered up and through the incision where the nose and mouth were thoroughly suctioned. A loose nuchal cord was reduced and the remainder of the infant delivered onto the field without difficulty. The cord was doubly clamped, cut, and the infant passed for resuscitative measures with weight and Apgars as noted above. A segment of cord was then doubly clamped, cut, and set aside should cord gases become necessary. The placenta was delivered spontaneously, intact, and grossly normal with a grossly normal three-vessel cord. The uterus was exteriorized and the interior cavity of the uterus swept of any remaining placental or membranous fragments. The margins of the incision were grasped with Myers clamps and the incision closed in 2 layers. The first layer was a running locking stitch of 0 chromic catgut from margin to margin followed by a running imbricating stitch from margin to margin. Any small points of bleeding were made hemostatic with the Bovie. The posterior cul-de-sac was suctioned using a guard and attention returned to the uterine incision. Use was replaced within the abdominal cavity was noted to have some ongoing bleeding both at the right aspect and central aspects of the incision at which time they were made hemostatic with a [id number] stitch of 0 chromic catgut. Once hemostasis had been established, the parietal peritoneum was loosely reapproximated as best as possible in the layer of muscles examined and made hemostatic with the Bovie. The fascia was closed with a running stitch of 0 Vicryl lateral margins to the midpoint. The subcutaneous tissues were irrigated, made hemostatic with the Bovie, and reapproximated using a running stitch of 30 plain catgut from margin to margin. The skin was closed with a running subcuticular stitch of 4-0 Vicryl proceeding from margin to margin. Estimated blood loss for the case is approximately 800 mL. There were no complications. All sponge, instrument, needle counts were correct. The patient tolerated the procedure well and proceeded to the recovery room in stable condition. Both mother and infant are resting comfortably in recovery.
[2020-08-26] MEDS: diphenhydrAMINE 50 MG/ML 1 ML VIAL IVP PRN (16:41)
[2020-08-26] MEDS: KETOROLAC 15 MG/ML 1 ML VIAL IVP PRN (19:46)
[2020-08-26] MEDS: SENNOSIDES-DOCUSATE SODIUM 1 EACH TAB PO SCH (19:46)
[2020-08-27] MEDS: LACTATED RINGERS 1,000 ML IV SCH ×2 (01:20→08:08)
[2020-08-27] MEDS: KETOROLAC 15 MG/ML 1 ML VIAL IVP PRN (01:40)
[2020-08-27] MEDS: diphenhydrAMINE 50 MG/ML 1 ML VIAL IVP PRN (01:42)
[2020-08-27] MEDS: HYDROcodone/APAP 5-325MG 1 EACH TAB PO PRN ×2 (05:25→23:38)
[2020-08-27 06:33] LABS: Basophils % (A) 0 %; Eosinophils # (A) 0.1 k/uL (0-0.7); Eosinophils % (A) 1 %; HCT 27.4 % (34.0-46.0); HGB 9.4 gm/dL (11.4-16.0); Lymphocytes # (A) 0.8 k/uL (1.0-4.8); Lymphocytes % (A) 11 %; MCH 27.8 pg (25.0-35.0); MCHC 34.2 g/dL (31.0-37.0); MCV 81.5 fL (80.0-100.0); Mean Platelet Volume 9.7; Monocytes # (A) 0.4 k/uL (0-1.0); Monocytes % (A) 5 %; Neutrophils # (A) 6.3 k/uL (1.3-7.7); Neutrophils % (A) 81 %; Platelet Count 129 k/uL (150-450); RBC 3.36 m/uL (3.80-5.40); WBC 7.8 k/uL (3.8-10.6)
[2020-08-27] MEDS: SENNOSIDES-DOCUSATE SODIUM 1 EACH TAB PO SCH ×2 (08:07→20:31)
--- NOTE | 2020-08-27 08:26 | P.PN ---
Progress Note - Text Progress Note Date: 08/27/20 (962) Anesthesia Postop day 1 Subjective: Status Post section with Duramorph. Patient seen and examined. Doing well without current complaint. VAS 4 out of 10. Positive nausea, and vomiting 3 yesterday now resolved. Pruritus mildtolerable.. Afebrile. Gross lower extremity strength intact. Positive ambulation. Without apparent anesthetic complications. Objective: Vital signs reviewed Heart: Regular Rate Lungs: Good chest excursion Abdomen: Appears nondistended Assessment: Status post with Duramorph postop day 1 Plan: Continue current care with your medical management.
--- NOTE | 2020-08-27 08:36 | P.PNOBGPC ---
Subjective - Subjective Patient reports: Reports appetite normal, Reports voiding normally, Reports pain well controlled, Reports ambulating normally : doing well Objective - Vital Signs Latest vital signs: Vital Signs Temp Pulse Resp BP Pulse Ox 08/27/20 04:00 96.9 F L 88 16 115/67 08/27/20 00:00 98.0 F 80 16 124/76 08/26/20 20:00 98.1 F 86 16 123/74 08/26/20 15:15 75 16 132/79 98 08/26/20 14:45 78 16 108/58 99 08/26/20 14:15 91 16 117/75 99 08/26/20 14:00 78 16 135/75 97 08/26/20 13:45 86 16 133/70 98 08/26/20 13:30 87 16 127/86 99 08/26/20 13:15 97.2 F L 87 16 126/76 98 08/26/20 10:37 96.9 F L 76 16 135/91 Intake and Output 08/26/20 08/27/20 08/27/20 22:59 06:59 14:59 Output Total 1151 100 Balance -1151 -100 Output: Urine 1150 100 Uretheral (Goins) 400 Emesis 1 - Exam Extremities: Present: normal Abdomen: Present: normal appearance, soft. Absent: distention, tenderness Incision: Present: normal, dry, intact Uterus: Present: normal, firm (And fundus is tonic inappropriately tender just below the umbilicus.) - Labs Labs: Abnormal Lab Results - Last 24 Hours (Table) 08/26/20 08/27/20 Range/Units 10:45 06:22 RBC 3.36 L (3.80-5.40) m/uL Hgb 10.8 L 9.4 L (11.4-16.0) gm/dL Hct 31.6 L 27.4 L (34.0-46.0) % Plt Count 129 L (150-450) k/uL Lymphocytes # 0.8 L (1.0-4.8) k/uL Assessment and Plan (1) Gestational diabetes Current Visit: No Status: Acute Code(s): O24.419 - GESTATIONAL DIABETES MELLITUS IN , UNSP CONTROL SNOMED Code(s): 77279480 (2) Previous section Current Visit: No Status: Acute Code(s): Z98.891 - HISTORY OF UTERINE SCAR FROM PREVIOUS SURGERY SNOMED Code(s): 197582740 (3) Term Current Visit: No Status: Acute Code(s): Z34.80 - ENCOUNTER FOR SUPRVSN OF NORMAL , UNSP TRIMESTER SNOMED Code(s): 20331531 (4) S/P section Current Visit: No Status: Acute Code(s): Z98.89 - OTHER SPECIFIED POSTPROCEDURAL STATES * DO NOT USE * SNOMED Code(s): 848361321 Plan: Continue routine postoperative care. I would anticipate discharge home tomorrow pending no complications. I have strongly encouraged the patient and the halls routinely.
[2020-08-27] MEDS: HYDROcodone/APAP 7.5-325MG 1 EACH TAB PO PRN ×2 (11:07→18:18)
[2020-08-27] MEDS: IBUPROFEN 600 MG TAB PO PRN ×2 (13:57→20:31)
[2020-08-28] MEDS: HYDROcodone/APAP 5-325MG 1 EACH TAB PO PRN (04:41)
[2020-08-28] MEDS: SENNOSIDES-DOCUSATE SODIUM 1 EACH TAB PO SCH (08:14)
[2020-08-28] MEDS: HYDROcodone/APAP 7.5-325MG 1 EACH TAB PO PRN (08:14)
--- NOTE | 2020-08-28 08:38 | P.DS ---
Providers Date of admission: 08/26/20 10:08 Expected date of discharge: 08/28/20 Attending physician: Garrett Contreras Primary care physician: Stated None - Discharge Diagnosis(es) (1) Gestational diabetes Current Visit: No Status: Acute (2) Previous section Current Visit: No Status: Acute (3) Term Current Visit: No Status: Acute (4) S/P section Current Visit: No Status: Acute Hospital Course: The patient is a 35-year-old 3 para 2001 admitted at 39 and one sevenths weeks by good dating parameters. She is admitted for repeat low transverse section having had 2 previous sections and requesting repeat. Her is comfortable gestational diabetes with good blood sugar control initially with diet. Group B strep status is negative. On labor and delivery, she was taken the operating room where she was delivered of a viable 8 lbs. 1 oz. baby girl with Apgars of 9 at 1 minute and 9 at 5 minutes. Her postoperative course and course were unremarkable with vital signs remaining stable and her temperature was afebrile throughout. She was deemed stable for discharge on and postoperative day #2 was discharged home to follow-up in the office in 2 weeks for an incision check and 6 weeks routinely. Discharge instructions included calling for any significantly in creased bleeding or foul-smelling lochia, significantly increased fever or abdominal pain, perineal complaints, breast complaints, incisional complaints, or anything else that concerned her. She was additionally instructed to have nothing in the vagina for at least 6 weeks time to include intercourse and to abstain from any heavy lifting over the same period of time. She was last instructed to do no driving until off of all pain medications or 2 weeks' time, whichever came first. She understood her instructions and agrees to follow up as noted above. Discharge medications included [id number] analgesic pain medications as well as continued vitamins as she has opted to breast- feed. She additionally was provided with a prescription for [place] 5/325 mg, 1-2 by mouth every 6 hours when necessary pain, #20 dispensed with no refills. Maternal blood type is O+ and rubella status is immune. Discharge hemoglobin and hematocrit were 9.4 and 27.4 respectively. As result, she was asked to take iron sulfate of once daily for at least a month to rebuild her hemoglobin. Procedures: #1. Repeat low transverse section Patient Condition at Discharge: Stable Plan - Discharge Summary Discharge Rx Participant: Yes New Discharge Prescriptions: No Action Ferrous Sulfate [Feosol] 325 mg PO BID Calcium Carbonate [Tums] 1,000 mg PO TID PRN PRN Reason: REFLUX Pnv No.95/Ferrous Fum/Folic AC [ Multivitamin Tablet] 1 each PO DAILY Famotidine [Pepcid] 10 mg PO BID Discharge Medication List Calcium Carbonate [Tums] 1,000 mg PO TID PRN 08/20/20 [History] Famotidine [Pepcid] 10 mg PO BID 08/20/20 [History] Ferrous Sulfate [Feosol] 325 mg PO BID 08/20/20 [History] Pnv No.95/Ferrous Fum/Folic AC [ Multivitamin Tablet] 1 each PO DAILY 08/20/20 [History] Follow up Appointment(s)/Referral(s): Garrett Contreras MD [STAFF PHYSICIAN] - 2 Weeks Discharge Disposition: HOME SELF-CARE
[2020-08-28 08:39] VITALS: BP 118/77; PULSE 103; RESP 18; TEMP 98.4
== END 2020-08-28 12:00 | disposition home or self-care (01) | DRG 788 ==
LOC: 4FBP 10:08
PROVIDERS: ADMIT Obstetrics & Gynecology; ATTEND Obstetrics & Gynecology
PROC: 10D00Z1 Extraction of Products of Conception, Low, Open Approach (ICD-10-PCS; principal; 2020-08-26 12:00)
DX: O34.211 Maternal care for low transverse scar from previous cesarean delivery (principal); O24.429 Gestational diabetes mellitus in childbirth, unspecified control; L29.9 Pruritus, unspecified; K21.9 Gastro-esophageal reflux disease without esophagitis; O99.62 Diseases of the digestive system complicating childbirth; Z37.0 Single live birth; Z3A.39 39 weeks gestation of pregnancy; Z87.891 Personal history of nicotine dependence; Z91.09 Other allergy status, other than to drugs and biological substances
CPT/HCPCS: 85025; 86850; 86900; 86901

== ENCOUNTER → 2021-11-05 | Outpatient (CLI) | payer MEDICAID ==
[2021-11-05 15:30] LABS: HCT 43.2 % (37.2-46.3); HGB 13.6 g/dL (12.0-15.0); MCH 29.1 pg (27.0-32.0); MCHC 31.5 g/dL (32.0-37.0); MCV 92.3 fL (80.0-97.0); Mean Platelet Volume 10.1 fL (9.5-12.2); NRBC Per 100 WBC 0 /100 WBCS (0.0-0.0); Platelet Count 301 X 10*3/uL (140-440); RBC 4.68 X 10*6/uL (4.10-5.20); RDW 13.5 % (11.5-14.5); WBC 8.67 X 10*3/uL (4.50-10.00)
[2021-11-05 15:45] LABS: ALT 117 U/L (8-44); AST 93 U/L (13-35); African American GFR (CKD) 136.4 (60.0-200.0); Albumin 4.7 g/dL (3.8-4.9); Albumin/Globulin Ratio 1.47 (1.60-3.17); Alkaline Phosphatase 73 U/L (41-126); BUN/Creat Ratio 17.13 Ratio (12.00-20.00); Blood Urea Nitrogen 10.4 mg/dL (9.0-27.0); Calcium 9.9 mg/dL (8.7-10.3); Carbon Dioxide 19.2 mmol/L (20.0-27.5); Chloride 103 mmol/L (96-109); Chol/HDL Ratio 4.36 Ratio; Globulin 3.2 g/dL (1.6-3.3); Glucose 100 mg/dL (70-110); LDL Cholesterol,Calculated 168.2 mg/dL (0.0-131.0); Non-African American GFR(CKD) 117.6 (60.0-200.0); Potassium 4.2 mmol/L (3.5-5.5); Sodium 135 mmol/L (135-145)
== END | disposition home or self-care (01) ==
LOC: LABWHC1 08:56
PROVIDERS: ATTEND Nurse Practitioner Family
DX: Z00.00 Encounter for general adult medical examination without abnormal findings (principal)
CPT/HCPCS: 36415; 80053; 80061; 83036; 84439; 84443; 85027

== ENCOUNTER → 2021-12-29 | Outpatient (CLI) | payer MEDICAID ==
--- NOTE | 2021-12-29 18:03 | US ---
EXAMINATION TYPE: US liver DATE OF EXAM: 12/29/2021 COMPARISON: NONE CLINICAL HISTORY: 36-year-old female R94.5 ABNORMAL RESULTS OF LIVER FUNCTION STUDIES. Abn AST and al t TECHNIQUE: Multiple sonographic images of the right upper quadrant pain. FINDINGS: EXAM MEASUREMENTS: Liver Length: 16.5 cm Gallbladder Wall: 0.3 cm CBD: 5.5 mm Right Kidney: 10.4 x 5.3 x 5.1 cm Pancreas: wnl Liver: wnl Gallbladder: wnl Evidence for sonographic Henriquez's sign: no CBD: Upper limits of normal in caliber. Right Kidney: wnl IMPRESSION: 1. Bile duct upper limits of normal in caliber. This may be chronic for the patient. Correlate with a lkaline phosphatase and bilirubin levels. 2. No gallstones. Unremarkable sonographic appearance to the liver.
== END | disposition home or self-care (01) ==
LOC: RADUSWWP 09:30
PROVIDERS: ATTEND Family Medicine
DX: R94.5 Abnormal results of liver function studies (principal)
CPT/HCPCS: 76705